=== PATIENT | female | born 1975 | race Caucasian/White ===

== ENCOUNTER → 2018-06-30 | Outpatient (CLI) | payer BC ==
[~2018-06-30] MED LIST: AC500T; DIPH1TAB45 PO; HYDR-690 PO
--- NOTE | 2018-06-30 08:29 | Diagnostic Imaging Report ---
PROCEDURE: CT abdomen and pelvis without contrast. TECHNIQUE: Multiple contiguous axial images were obtained through the abdomen and pelvis without the use of intravenous contrast. INDICATION: UTI. Right lower quadrant pain. Hematuria. COMPARISON: None. FINDINGS: There are several nonobstructing calyceal tip renal stones in both kidneys measuring up to 3 mm on the right and 2 mm on the left. No ureteral stones or hydronephrosis. The lung bases are clear. The liver, gallbladder, pancreas, spleen, adrenals and bladder are negative on this noncontrast exam. Hysterectomy. No evidence of appendicitis. No free intraperitoneal air or fluid. No lymphadenopathy. No evidence of bowel obstruction. No acute osseous findings. IMPRESSION: 1. Several nonobstructing calyceal tip renal stones in both kidneys. No ureteral stones or hydronephrosis. 2. No acute CT findings in the abdomen or pelvis on this noncontrast exam. Dictated by: Dictated on workstation # [id number]
== END ==
LOC: RAD 07:52
PROVIDERS: ATTEND Urology
DX: N20.0 Calculus of kidney (principal); N39.0 Urinary tract infection, site not specified
CPT/HCPCS: 74176

== ENCOUNTER 2018-07-01 14:20 | Outpatient (RCR) | payer BC | END 2018-09-29 | disposition home or self-care (01) | LOC: LAB 14:20 → EDSTATUS 14:21 | PROVIDERS: ATTEND Urology | DX: N20.2 Calculus of kidney with calculus of ureter (principal) | CPT/HCPCS: 36415; 82140; 82340; 82507; 82570; 83735; 83945; 83986; 84105; 84133; 84300; 84392; 84560 ==